=== PATIENT | male | born 1955 | race Caucasian/White ===

== ENCOUNTER 2020-02-02 09:39 | Day surgery (SDC) | payer MEDICARE, OTHER ==
[~2020-02-02] VITALS: Ht 177.8 cm; Wt 101.7 kg
[~2020-02-02 09:39] MED LIST: ATORVASTATIN CA20 MG PO; IBUP200 PO; OMEP20ER PO; TRAZ50 PO
[2020-02-02] MEDS ORDERED: Prinivil10 MG (10:08)
[2020-02-02] MEDS ORDERED: NAPR220 (10:09)
== END 2020-02-02 11:36 | disposition home or self-care (01) ==
LOC: ORSCSDS 09:39
PROVIDERS: Internal Medicine Gastroenterology
PROC: 0DB58ZX Excision of Esophagus, Via Natural or Artificial Opening Endoscopic, Diagnostic (ICD-10-PCS; principal; 2020-02-02 11:00)
PROC: 0DB68ZX Excision of Stomach, Via Natural or Artificial Opening Endoscopic, Diagnostic (ICD-10-PCS; principal; 2020-02-02 11:00)
DX: K21.0 Gastro-esophageal reflux disease with esophagitis (principal); K29.00 Acute gastritis without bleeding; K29.80 Duodenitis without bleeding; K31.89 Other diseases of stomach and duodenum; G47.33 Obstructive sleep apnea (adult) (pediatric); I10 Essential (primary) hypertension; Z79.899 Other long term (current) drug therapy; Z87.891 Personal history of nicotine dependence
CPT/HCPCS: 88305; 88312; 88342; J2704; J7120

== ENCOUNTER 2020-02-26 12:46 | Emergency (ER) | payer MEDICARE, OTHER ==
[~2020-02-26] VITALS: Ht 177.8 cm; Wt 102.1 kg
[~2020-02-26 12:46] MED LIST changes: +NAPR220; +Prinivil10 MG
== END 2020-02-26 16:18 | disposition home or self-care (01) ==
LOC: ER 12:46
DX: S61.311A Laceration without foreign body of left index finger with damage to nail, initial encounter (principal); S61.111A Laceration without foreign body of right thumb with damage to nail, initial encounter; Z23 Encounter for immunization; Z88.2 Allergy status to sulfonamides; W45.8XXA Other foreign body or object entering through skin, initial encounter
CPT/HCPCS: 13133; 73140; 99282-25

== ENCOUNTER 2020-04-12 06:36 | Day surgery (SDC) | payer MEDICARE, OTHER ==
[~2020-04-12] VITALS: Ht 177.8 cm; Wt 31.6 kg
[~2020-04-12 06:36] MED LIST changes: -Prinivil10 MG; +Prinivil10 MG PO
== END 2020-04-12 08:47 | disposition home or self-care (01) ==
LOC: ORSCSDS 06:36
PROVIDERS: Internal Medicine Gastroenterology
PROC: 0DB58ZX Excision of Esophagus, Via Natural or Artificial Opening Endoscopic, Diagnostic (ICD-10-PCS; principal; 2020-04-12 08:00)
PROC: 0DB68ZX Excision of Stomach, Via Natural or Artificial Opening Endoscopic, Diagnostic (ICD-10-PCS; principal; 2020-04-12 08:00)
DX: K21.9 Gastro-esophageal reflux disease without esophagitis (principal); K29.80 Duodenitis without bleeding; K29.00 Acute gastritis without bleeding; K22.2 Esophageal obstruction; G47.33 Obstructive sleep apnea (adult) (pediatric); I10 Essential (primary) hypertension; Z87.891 Personal history of nicotine dependence; Z79.899 Other long term (current) drug therapy
CPT/HCPCS: 88305; 88312; 88342; J0330; J0461; J2405; J2704; J7120

== ENCOUNTER 2020-10-04 08:18 | Day surgery (SDC) | payer MEDICARE, OTHER ==
[~2020-10-04] VITALS: Ht 177.8 cm; Wt 100.0 kg
[~2020-10-04 08:18] MED LIST changes: +ATOR20 PO; +GABA100 PO; +NAPR220 PO; +OMEPRAZOLE20 M2 PO
--- NOTE | 2020-10-04 09:06 | NUR ---
Ambulatory in Day Surgery History, Chart, Medications and Allergies reviewed before start of procedure. Lungs clear T/O to Auscultation. Pre-Op teaching done. Pt verbalizes understanding.
--- NOTE | 2020-10-04 19:02 | NUR ---
PT REPORTS PAIN DOING MUCH BETTER AFTER WAKING IN HALLWAY.
--- NOTE | 2020-10-04 19:02 | NUR ---
SHIFT SUMMARY PT EATING AND DRINKING, VOIDED. PT WALKED IN HALLWAY WITH ASSIST. FAMILY WAS HERE EARLIER. PT BEEN ASSISTED WITH ADL'S PRN. PT BEEN MED ORDERED AND PRN. PT USING CALL LIGHT APPR, CALL LIGHT IN REACH.
[2020-10-05 04:43] LABS: BASOPHILS ABSOLUTE AUTO 0.05 K/mm3 (0.00-0.23); BASOPHILS PERCENT AUTO 1 % (0-2); EOSINOPHILS ABSOLUTE AUTO 0.23 K/mm3 (0.00-0.68); EOSINOPHILS PERCENT AUTO 4 % (0-6); Hematocrit 36.1 % (37.0-53.0); Hemoglobin 11.8 g/dL (13.5-17.5); IMMATURE GRAN ABSOLUTE AUTO 0.04 K/mm3 (0.00-0.10); IMMATURE GRAN PERCENT AUTO 1 % (0-1); LYMPHOCYTES ABSOLUTE AUTO 1.49 K/mm3 (0.84-5.20); LYMPHOCYTES PERCENT AUTO 25 % (21-46); MONOCYTES ABSOLUTE AUTO 0.43 K/mm3 (0.16-1.47); MONOCYTES PERCENT AUTO 7 % (4-13); Mean Corpuscular HGB 28.6 pg (26.0-34.0); Mean Corpuscular HGB Conc 32.7 g/dL (31.5-36.5); Mean Corpuscular Volume 87 fL (80-100); Mean Platelet Volume 8.8 fL (9.1-12.4); NEUTROPHILS ABSOLUTE AUTO 3.84 K/mm3 (1.96-9.15); NEUTROPHILS PERCENT AUTO 63 % (41-73); Platelet Count 146 K/mm3 (150-400); RDW Coefficient Variation 12.5 % (11.7-14.2); Red Blood Cell Count 4.13 M/mm3 (4.30-5.90); White Blood Cell Count 6.08 K/mm3 (4.00-11.30)
[2020-10-05 05:08] LABS: Anion Gap 6 mmol/L (6-16); Blood Urea Nitrogen 24 mg/dL (8-24); Bun/Creatinine Ratio 21.1 (12.0-20.0); CO2, Blood 26 mmol/L (21-32); Calcium, Blood 8.4 mg/dL (8.5-10.1); Chloride, Blood 106 mmol/L (98-108); Creatinine, Blood 1.14 mg/dL (0.60-1.20); Glomerular Filtration Rate >60 (60-); Glucose, Blood 102 mg/dL (70-99); Potassium, Blood 4.1 mmol/L (3.5-5.5); Sodium, Blood 138 mmol/L (136-145)
--- NOTE | 2020-10-05 06:03 | NUR ---
SHIFT SUMMARY: CHRISTOS IS A&OX4. VSS, NO ACUTE EVENTS OVERNIGHT, MAINTAINING SATS ORA. HE IS A ONE PERSON ASSIST WITH THE GAIT BELT AND FWW TO THE BATHROOM AND AMBULATING IN THE HALLWAY. JASEN WRAP TO R KNEE C/D&I. MALLORIE HOSE, PAS AND POLAR JOSE IN PLACE. TOLERATING PO INTAKE WELL. HE REPORTS ADEQUATE PAIN CONTROL WITH APAP, TORADOL, OXY AND DILAUDID. HE USES THE CALL LIGHT APPROPRIATELY. IV TO L FOREARM PATENT. HE IS URINATING WITHOUT DIFFICULTY. HE SPENT THE MAJORITY OF THE NIGHT IN THE RECLINER D/T CHRONIC SCIATIC PAIN. HE IS PLEASANT AND COOPERATIVE, PERFORMING HIS EXERCISES WITHOUT PROMPTING. HE IS LYING IN BED WITH HIS CALL LIGHT IN REACH. WILL REPORT TO DAY SHIFT RN.
[2020-10-05] MEDS ORDERED: Percocet 5-3251 EACH PO (09:12)
[2020-10-05] MEDS ORDERED: Aspir 8181 MG PO (09:12)
--- NOTE | 2020-10-05 15:20 | NUR ---
PT LEFT UNIT WITHOUT DC INSTRUCTIONS. THIS RN CALLED TO VERBALLY GIVE INSTRUCTIONS OVER THE PHONE. PT VERBALIZED UNDERSTANDING. IV WAS REMOVED BEFORE DC. PT HAS FILLED SCRIPTS. INSTRUCTIONS MAY BE PICKED UP TOMORROW BY SPOUSE.
--- NOTE | 2020-10-05 15:47 | NUR ---
1519 discharged to home with spouse
== END 2020-10-05 23:59 | disposition home or self-care (01) ==
LOC: ORSCMMR 08:18 → ORD 09:45 → ORSCMMR 09:45 → ORD 10:45 → ORSCMMR 13:35 → SURS 13:35 → ORSCMMR 10-05 14:46 → ORD 10-11 12:15
PROVIDERS: Orthopaedic Surgery
PROC: 0SRC0JA Replacement of Right Knee Joint with Synthetic Substitute, Uncemented, Open Approach (ICD-10-PCS; principal; 2020-10-04 09:45)
PROC: 8E0YXBZ Computer Assisted Procedure of Lower Extremity (ICD-10-PCS; principal; 2020-10-04 09:45)
DX: M17.11 Unilateral primary osteoarthritis, right knee (principal); I10 Essential (primary) hypertension; E66.9 Obesity, unspecified; Z68.31 Body mass index [BMI] 31.0-31.9, adult; Z79.899 Other long term (current) drug therapy; Z87.891 Personal history of nicotine dependence
CPT/HCPCS: 36415; 73560-RT; 80048; 85025; 88300; 97116; 97162; 97530; A9270; A9270-GY; C1776; J0171; J0690; J0735; J1170; J1885; J2250; J2704; J2795; J3010; J7120

== ENCOUNTER 2024-12-21 07:24 | Emergency (ER) | payer OTHER ==
[~2024-12-21] VITALS: Ht 177.8 cm; Wt 93.9 kg
[~2024-12-21 07:24] MED LIST changes: +Aspir 8181 MG PO; +Percocet 5-3251 EACH PO
[2024-12-21] MEDS ORDERED: Dexamethasone Sod Phos 10 MG/ML 1ML VIAL PO ONE (07:50)
[2024-12-21] MEDS ORDERED: Naproxen 250 MG TAB PO ONE (07:50)
[2024-12-21] MEDS ORDERED: HYDROcodone 7.5-APAP 325 TAB PO ONE (07:50)
[2024-12-21] MEDS ORDERED: PRED20 PO (08:32)
[2024-12-21] MEDS ORDERED: HYDR1TAB94 PO (08:32)
[2024-12-21] MEDS ORDERED: IBUP800 PO (08:32)
[2024-12-21 09:08] VITALS: BP 136/73
== END 2024-12-21 09:08 | disposition home or self-care (01) ==
LOC: ER 07:24
DX: M25.562 Pain in left knee (principal); I10 Essential (primary) hypertension; E78.5 Hyperlipidemia, unspecified; K21.9 Gastro-esophageal reflux disease without esophagitis; Z88.2 Allergy status to sulfonamides; Z88.8 Allergy status to other drugs, medicaments and biological substances; Z79.02 Long term (current) use of antithrombotics/antiplatelets; Z79.891 Long term (current) use of opiate analgesic; Z79.899 Other long term (current) drug therapy; Z79.82 Long term (current) use of aspirin; W11.XXXA Fall on and from ladder, initial encounter; Y93.A3 Activity, aerobic and step exercise
CPT/HCPCS: 73562-LT; 99283-25; A9270; J1100

== ENCOUNTER 2025-01-25 10:30 | Day surgery (SDC) | payer OTHER ==
[~2025-01-25] VITALS: Ht 177.8 cm; Wt 90.8 kg
[~2025-01-25 10:30] MED LIST changes: +HYDR1TAB94 PO; +IBUP800 PO; +NS 500 ML IV ONE; +PRED20 PO
[2025-01-25] MEDS ORDERED: NS 500 ML IV ONE (11:16)
--- NOTE | 2025-01-25 11:21 | NUR ---
01/25/25 1121 Sophia Fonseca TIME OUT PERFORMED AT BEDSIDE WITH DR LOVELACE AT 1118 IMMEDIATELY PRIOR TO INJECTION OF 5ML OF SOLUTION CONTAINING 9ML OF 1% LIDOCAINE WITH EPI AND 1ML 8.4% SODIUM BICARBONATE INTO L HAND. PT TOLERATED PROCEDURE WITHOUT ANY DIFFICULTIES.
[2025-01-25] MEDS ORDERED: FentaNYL Citrate 50 MCG/ML 2 ML Injection ONE (12:22)
[2025-01-25] MEDS ORDERED: Midazolam HCl 1MG / ML 2ML Vial ONE (12:22)
[2025-01-25] MEDS ORDERED: Ondansetron HCl 2 MG / ML 2ML Vial ONE (12:23)
[2025-01-25 12:41] VITALS: BP 134/98
[2025-01-25] MEDS ORDERED: NS 1,000 ML IV ONE (12:47)
--- NOTE | 2025-01-25 12:48 | NUR ---
01/25/25 1248 MIGUEL SHAIKH UP IN CHAIR, GLASSES ON, LEFT HEARING AID IN PLACE. DENIES NAUSEA/PAIN. TOLERATING SODA.
== END 2025-01-25 13:05 | disposition home or self-care (01) ==
LOC: ORSCSDS 10:30
PROVIDERS: Orthopaedic Surgery
PROC: 0LN80ZZ Release Left Hand Tendon, Open Approach (ICD-10-PCS; principal; 2025-01-25 12:00)
DX: M65.322 Trigger finger, left index finger (principal); K21.9 Gastro-esophageal reflux disease without esophagitis; E78.5 Hyperlipidemia, unspecified; G47.30 Sleep apnea, unspecified; I10 Essential (primary) hypertension; Z87.891 Personal history of nicotine dependence; Z79.01 Long term (current) use of anticoagulants; Z79.82 Long term (current) use of aspirin; Z79.899 Other long term (current) drug therapy
CPT/HCPCS: J2250; J2405; J3010; J7040